=== PATIENT | male | born 1995 | race Caucasian/White ===

== ENCOUNTER 2022-02-05 03:09 | Inpatient (IN) ==
[2022-02-05] MEDS ORDERED: IOPAMIDOL 100 ML BOTTLE IV ONE (03:10)
[2022-02-05] MEDS ORDERED: SULFAMETHOXAZOLE/TRIMETHOPRIM 1 TABLET PO ONE (03:50)
[2022-02-05] MEDS ORDERED: CEPHALEXIN 250 MG CAPSULE PO ONE (03:50)
[2022-02-05] MEDS ORDERED: ACETAMINOPHEN 325 MG TABLET PO ONE (03:52)
--- NOTE | 2022-02-05 03:53 | Emergency Department Note ---
HPI General Chief complaint: Chest Pain Stated complaint: chest/arm pain Time Seen by Provider: 02/05/22 03:19 Source: patient Mode of arrival: ambulatory History of Present Illness HPI Narrative: 26-year-old male presents with intermittent chest discomfort nonproductive cough for the last week. States exertional shortness of breath. Friend is at bedside. He does use IV heroin as well as smokes methamphetamine. He is trying to detox himself at home and using smaller less frequent doses of IV heroin. Did notice redness swelling to his left AC approximately 5 days ago. No drainage. No numbness tingling or focal weakness. No fevers or chills. He feels he may have an abscess. No associated nausea vomiting abdominal pain diarrhea. Though states decreased p.o. intake. No recent travels or sick contacts. He is not Covid vaccinated Related Data Allergies Allergy/AdvReac Type Severity Reaction Status Date / Time ibuprofen Allergy Vomiting Verified 02/05/22 03:16 morphine Allergy Hives Verified 02/05/22 03:16 naproxen Allergy Vomiting Verified 02/05/22 03:16 tramadol Allergy Vomiting Verified 02/05/22 03:16 Review of Systems ROS ROS Narrative: 10 point review of system is otherwise negative except as mentioned in HPI. PFSH Narrative Patient History Narrative: Narrative: Medical/Surgical/Family History All Active Problems (Updated 02/05/22 @ 04:16 by Beryl Maciel MD) Contusion (Acute) Fracture of hand (Acute) Medical History (Updated 02/05/22 @ 04:16 by Beryl Maciel MD) Contusion Fracture of hand Social History Smoking Status: Current every day smoker Exam Narrative Narrative: (Please note that portions of this note may have been completed with a voice recognition program. Efforts were made to edit the dictations but occasionally words are mis-transcribed) CONSTITUTIONAL: Well-nourished well-hydrated adult male weight is 83 kg Resting comfortably. Not in acute distress. Non toxic. Awake alert and oriented x3. Cooperative, follows commands. HEAD: Normocephalic. Atraumatic. EYES: EOMI ENT: No drooling stridor NECK: Supple. Full range of motion. Trachea midline CARDIOVASCULAR: Adequate peripheral perfusion. S1-S2. Regular rate and rhythm 96 beats on the monitor on my exam No murmurs rubs gallops. No JVD. No lower extremity edema. +2 radial pulses bilaterally. PULMONARY: Nonlabored. Breathing 16 breaths a minute. Speaking full sentences. Clear to auscultation bilaterally. No rhonchi wheeze or crackles. ABDOMINAL: Soft. Nondistended. Nontender. EXTREMITIES: No gross deformities. Moves all 4 extremities with good strength and tone. SKIN: Warm and dry. No petechiae. Wounds to his upper extremities bilaterally consistent with excoriations as well as track mata noted. Left AC 3 x 2 cm fluctuant tender erythematous warm area. Consistent with an abscess. Bedside ultrasound by EDMD confirms abscess cavity approximately 1 x 2 cm just under the epidermis. He does still have full range of motion at the elbow wrist with good handgrips bilaterally. NEUROLOGY: Sensation is intact. No gross focal deficits. GCS of 15 Course Vital Signs Vital signs: Vital Signs Temperature 37.3 C H 02/05/22 03:09 Pulse Rate 103 H 02/05/22 03:09 Respiratory Rate 32 H 02/05/22 03:09 Blood Pressure 107/68 02/05/22 03:09 Pulse Oximetry (%) 100 02/05/22 03:09 Temperature 37.8 C H 02/05/22 05:24 Pulse Rate 92 H 02/05/22 05:25 Respiratory Rate 24 H 02/05/22 05:25 Blood Pressure 120/80 02/05/22 05:25 Pulse Oximetry (%) 99 02/05/22 05:25 MDM MDM Narrative Medical decision making narrative: ddx arrhythmia pleurisy costochondritis bronchitis pneumonia viral Covid aspir ation pulmonary embolus pneumothorax pericarditis sepsis bacteremia etc. Low suspicion for acute cardiothoracic process at this time including pulmonary embolus endocarditis. Declined covid testing. 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 supportive care. does not meet criteria for therapeutics. Lungs are clear with a pulse ox of 100% on room air. Twelve-lead EKG was obtained and does show a sinus tachycardia at 101 bpm[address] Normal axis. No ST elevations or depressions. No T wave abnormalities. No ectopy. Normal intervals. Bedside I&D was performed by ED[facility]. Informed consent was obtained from patient. Risks versus benefits were explained at length. He is agreeable. I&D of left AC abscess measuring 2 x 3 cm. Sterile conditions. Cleansed with Betadine. Numbed with 1% lidocaine 3 cc total over the fluctuance. Using an 11 blade scalpel a 1 cm incision was made. Immediately purulent drainage drained approximately 6 cc. Using curved hemostats septi were broken. Additional 2 cc drained. And then subsequently blood. Abscess cavity was subsequently irrigated with sterile water. Again septi were broken with curved hemostats. No additional purulent drainage. Mild bleeding. Packed. Dressed. Patient did tolerate well. Given a dose of Keflex Bactrim. Tylenol for pain control. Given wound care instructions. And close up with primary care doctor on Tuesday for wound check as well as packing removal and likely repacking. Strongly encouraged to stop use of IV heroin as well as smoking methamphetamine. Fluid hydrate. Return back to the ER if symptoms worsen. Agreeable does verbalize understanding and has no further questions. Chest x-ray was obtained at bedside. And un fortunately per ED MD interpretation does show a left upper lobe infiltrate. Is mildly tachycardic in the 110s tachypneic at 20s. Labs IV fluids cultures have been ordered. CT angio of the chest has been ordered. Unable to obtain a peripheral IV. And so ultrasound guidance was used by EDID to place a 20-gauge right AC IV. Area was initially prepped with Betadine. Using ultrasound guidance long 20-gauge cath was visualized puncturing vein with good flash. I did subsequently obtain 20 cc of blood to be sent for routine analysis as well as 1 blood culture. IV was secured. Fluid hydration. IV Rocephin was ordered as well as doxycycline to cover for community-acquired pneumonia. Concern for MRSA pneumonia and so vancomycin was ordered. Did unfortunately spike a fever was given IV Toradol which she tolerated. States that he has side effects of nausea vomiting from the coating of p.o. Motrin. CT angio of the chest per radiologist does show a 8 cm consolidated infiltrate in the left paramediastinal upper lobe with 2 cavities one measuring 3.2 cm and the other measuring 1.4 cm that have developed within this mass. Likely representing a consolidated pneumonia complicated by abscess formation. Patient's fever did break. Slight improvement in heart rate in the 90s. Respirations are down to 24 breaths/min. Pulse ox remains normal at 99% on room air. He was updated on results clinical impressions treatment plan. I do recommend admission. He is agreeable questions have been answered at length. Hospitalist will be paged in the morning Final impressions 1. Large left upper lobe pneumonia complicated by abscess formation 2. Sepsis 3. left AC abscess sp I&D/packing 4. IV heroin abuse 5. Methamphetamine abuse Dipso: admit tele Condition: fair Lab Data Result diagrams: 02/05/22 04:30 02/05/22 04:30 Labs: Lab Results 02/05/22 02/05/22 02/05/22 Range/Units 04:30 04:30 04:30 WBC 19.3 H (4.5-11.0) K/mcL RBC 4.40 L (4.63-6.08) M/mcL Hgb 12.3 L (13.7-17.5) g/dL Hct 38.4 L (40.1-51.0) % MCV 87.3 (80.0-100.0) fL MCH 28.0 (26.0-34.0) pg MCHC 32.0 (31.0-36.0) g/dL RDW 13.9 (11.5-14.5) % Plt Count 481 H (140-440) K/mcL MPV 9.8 (7.4-10.4) fL Neut % (Auto) 71.8 (38.0-78.0) % Lymph % (Auto) 17.9 (15.5-49.0) % Spencer % (Auto) 8.7 (1.0-12.0) % Eos % (Auto) 1.0 (0.0-7.0) % Baso % (Auto) 0.6 (0.0-2.0) % Lymph # (Auto) 3.45 (1.50-4.80) K/mcL Spencer # (Auto) 1.67 H (0.10-0.90) K/mcL Eos # (Auto) 0.20 (0.00-0.70) K/mcL Baso # (Auto) 0.12 (0.00-0.30) K/mcL Absolute Neutrophils 13.81 H (1.80-8.00) K/mcL VBG Lactic Acid (0.5-2.0) mmol/L Sodium 134 (133-145) mmol/L Potassium 3.5 (3.3-5.1) mmol/L Chloride 97 (96-108) mmol/L Carbon Dioxide 24 (22-30) mmol/L Anion Gap 13.0 (8.0-16.0) BUN 4 L (6-20) mg/dL Creatinine 0.7 (0.7-1.2) mg/dL POC Creatinine 0.6 (0.6-1.2) mg/dL GFR Calculation 128 Glucose 91 (70-105) mg/dL Calcium 9.5 (8.6-10.4) mg/dL Total Bilirubin 0.3 (0.1-1.0) mg/dL AST 29 (<40) U/L ALT 48 H (<40) U/L Alkaline Phosphatase 183 H (39-117) U/L Troponin T < 0.01 (<0.03) ng/mL NT-Pro-B Natriuret Pep 181.5 H (<125.0) pg/mL Total Protein 9.1 H (5.9-8.4) gm/dL Albumin 3.7 (3.2-5.2) gm/dL Globulin 5.4 H (2.2-3.7) gm/dL Albumin/Globulin Ratio 0.7 L (1.0-2.3) 02/05/22 Range/Units 04:30 WBC (4.5-11.0) K/mcL RBC (4.63-6.08) M/mcL Hgb (13.7-17.5) g/dL Hct (40.1-51.0) % MCV (80.0-100.0) fL MCH (26.0-34.0) pg MCHC (31.0-36.0) g/dL RDW (11.5-14.5) % Plt Count (140-440) K/mcL MPV (7.4-10.4) fL Neut % (Auto) (38.0-78.0) % Lymph % (Auto) (15.5-49.0) % Spencer % (Auto) (1.0-12.0) % Eos % (Auto) (0.0-7.0) % Baso % (Auto) (0.0-2.0) % Lymph # (Auto) (1.50-4.80) K/mcL Spencer # (Auto) (0.10-0.90) K/mcL Eos # (Auto) (0.00-0.70) K/mcL Baso # (Auto) (0.00-0.30) K/mcL Absolute Neutrophils (1.80-8.00) K/mcL VBG Lactic Acid 1.3 (0.5-2.0) mmol/L Sodium (133-145) mmol/L Potassium (3.3-5.1) mmol/L Chloride (96-108) mmol/L Carbon Dioxide (22-30) mmol/L Anion Gap (8.0-16.0) BUN (6-20) mg/dL Creatinine (0.7-1.2) mg/dL POC Creatinine (0.6-1.2) mg/dL GFR Calculation Glucose (70-105) mg/dL Calcium (8.6-10.4) mg/dL Total Bilirubin (0.1-1.0) mg/dL AST (<40) U/L ALT (<40) U/L Alkaline Phosphatase (39-117) U/L Troponin T (<0.03) ng/mL NT-Pro-B Natriuret Pep (<125.0) pg/mL Total Protein (5.9-8.4) gm/dL Albumin (3.2-5.2) gm/dL Globulin (2.2-3.7) gm/dL Albumin/Globulin Ratio (1.0-2.3) Discharge Plan Patient/Caregiver Discharge Instructions Pt seen by CHEMICAL RECOVERY OPERATOR/PA only: No Patient Disposition: Xfer As Inpt ([facility]) Condition: Fair Follow up with: Garfield Grant MD [Primary Care Provider] -
[2022-02-05] MEDS ORDERED: 0.9 % SODIUM CHLORIDE 1,000 ML IV ONE ×2 (04:13)
[2022-02-05] MEDS ORDERED: cefTRIAXone 1 GM VIAL IV ONE (04:31)
[2022-02-05 04:40] LABS: POC Creatinine 0.6 mg/dL (0.6-1.2)
[2022-02-05] MEDS ORDERED: KETOROLAC 30 MG/ML VIAL IV ONE (04:40)
--- NOTE | 2022-02-05 04:42 | XRay Report ---
CLINICAL INFORMATION: Cough history of smoking COMPARISON: None. TECHNIQUE: PA and Lateral views FINDINGS: The heart size, mediastinum and pulmonary vessels are unremarkable. A moderate (9 cm) infiltrate or infiltrate-like mass has developed in the paramediastinal left upper lobe. The remaining lungs are clear. There are no effusions There are no effusions. The bones and soft tissues are within normal limits. IMPRESSION: Moderate infiltrate or, less likely, infiltrate-like mass in the paramediastinal left upper lobe. Chest CT will be performed Interpreted and Authenticated by: Leonel Sanchez 02/05/22
[2022-02-05] MEDS ORDERED: VANCOMYCIN 2,000 MG in 0.9 % SODIUM CHLORIDE 500 ML IV ONE (04:43)
[2022-02-05] MEDS ORDERED: DOXYCYCLINE 100 MG in DEXTROSE 5% IN WATER 100 ML IV ONE (04:43)
[2022-02-05 05:11] LABS: Basophils # (Auto) 0.12 K/mcL (0.00-0.30); Basophils % (Auto) 0.6 % (0.0-2.0); Hematocrit 38.4 % (40.1-51.0); Hemoglobin 12.3 g/dL (13.7-17.5); Lymphocytes # (Auto) 3.45 K/mcL (1.50-4.80); Lymphocytes % (Auto) 17.9 % (15.5-49.0); Mean Cell Volume 87.3 fL (80.0-100.0); Mean Platelet Volume 9.8 fL (7.4-10.4); Monocytes # (Auto) 1.67 K/mcL (0.10-0.90); Monocytes % (Auto) 8.7 % (1.0-12.0); Neutrophils % (Auto) 71.8 % (38.0-78.0); Platelet Count 481 K/mcL (140-440); Red Cell Distribution Width 13.9 % (11.5-14.5); WBC 19.3 K/mcL (4.5-11.0)
--- NOTE | 2022-02-05 05:29 | Cat Scan Report ---
CLINICAL INFORMATION: Left-sided chest pain. Moderate-sized infiltrate or infiltrate-like mass is seen in the left upper lobe on plain film COMPARISON: None. TECHNIQUE: 80 ml of Isovue-370 were injected intravenously. Using SmartPrep to maximize pulmonary artery opacification, .625mm helical slices were obtained from the lung apices through the lung bases. Following reconstruction, 2.5 mm sagittal, coronal, and axial reformations were processed. The exam was reviewed at mediastinal, lung, and bone windows. The exam was performed using radiation dose optimization techniques including, but not limited to, automated exposure control, adjustment of the mA and/or kV according to patient size and use of iterative reconstruction technique. FINDINGS: Pulmonary parenchymal windows show a large (8 cm x 4 cm) consolidated infiltrate in the paramediastinal left upper lobe. Within the infiltrate, a 3.2 cm cavitary region with air-fluid level is seen anteriorly and a smaller (14 mm) cavitary lesion seen posteriorly. Suspect pneumonia which has undergone central necrosis and abscess formation. The remaining lungs are clear. There are no effusions. Mediastinal windows show the heart is normal in size and configuration with widely patent coronary arteries. The pulmonary arteries are normal diameter and well opacified-no evidence of embolus. The thoracic aorta is normal diameter. A 22 mm enlarged lymph node in the thoracic aortic arch region is likely reactive related to the adjacent infection. Mild adenopathy in the left suprahilar region is contiguous the infiltrate. Esophagus is grossly normal. Thyroid is unremarkable. Bones and soft tissues of the chest wall show no abnormality. Images through the superior abdomen show mild hepatic enlargement. The visualized spleen, adrenal glands, kidneys and pancreas are normal. IMPRESSION: 1. Large (8 cm) consolidated infiltrate in the paramediastinal left upper lobe. Two cavities, 3.2 cm and 1.4 cm, respectively have developed within the mass. This almost certainly represents a consolidated pneumonia complicated by abscess formation. Malignancy, while possible, is considered highly unlikely. Suggest plain film follow-up in four weeks to ensure resolution with antibiotic treatment. 2. Mild hepatomegaly. Please correlate with LFTs Interpreted and Authenticated by: Leonel Sanchez 02/05/22
[2022-02-05] MEDS ORDERED: 0.9 % SODIUM CHLORIDE 500 ML IV ONE (05:32)
[2022-02-05 05:35] LABS: proBNP 181.5 pg/mL (<125.0)
[2022-02-05 05:37] LABS: ALT/SGPT 48 U/L (<40); AST/SGOT 29 U/L (<40); Albumin 3.7 gm/dL (3.2-5.2); Albumin/Globulin Ratio 0.7 (1.0-2.3); Alkaline Phosphatase 183 U/L (39-117); Bilirubin,Total 0.3 mg/dL (0.1-1.0); Blood Urea Nitrogen 4 mg/dL (6-20); Calcium 9.5 mg/dL (8.6-10.4); Carbon Dioxide 24 mmol/L (22-30); Chloride 97 mmol/L (96-108); Globulin 5.4 gm/dL (2.2-3.7); Glomerular Filtration Rate 128; Glucose 91 mg/dL (70-105)
[2022-02-05] MEDS ORDERED: metroNIDAZOLE 500 MG in PREMIX 1 BAG IV ONE (06:51)
--- NOTE | 2022-02-05 06:59 | Internal Med History&Physical ---
HPI History of Present Illness Patient information: Note initiated : 02/05/22 at 6:56 am Service Date, if different from initiated Date: [] Patient: Steven Dodson 26 y/o M admitted on for chest/arm pain. Chief Complaint: [] History of present illness: Mr. 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 The patient was found to have an abscess related to recent IV drug use and underwent I&D in the emergency department. A large cons olidated infiltrate in the paramediastinal left upper lobe with 2 cavities within the mass likely representing a consolidated pneumonia complicated by abscess formation. Patient was started on broad-spectrum antibiotics. Hospital medicine was consulted for admission. Review of systems Constitutional: Positive for fatigue Eyes: no vision changes or pain Cardiovascular: Positive for pleuritic chest pain, no palpitations Respiratory: no cough or dyspnea Gastrointestinal: no abdominal pain, no nausea, vomiting, or diarrhea Genitourinary: no dysuria or difficulty voiding Musculoskeletal: Positive for left upper extremity pain in the antecubital fossa Integumentary: Positive for redness and edema in the antecubital fossa Neurological: no focal weakness or numbness Psychiatric: no anxiety or depression Physical exam Head: Atraumatic, normal inspection. Eyes: normal appearance, no scleral icterus. Neck: full ROM Respiratory: no respiratory distress. Cardiovascular: normal rate and rhythm, S1, S2. GI/Abdominal: soft, nontender, no guarding. Extremities: Status post I&D of abscess in left antecubital fossa Neurological: CN II-XII intact, intact motor, intact sensation. Psychiatric: normal mood. Skin: Multiple skin lesions throughout torso, abdomen upper legs in various stages of healing. PFSH PFSH All Active Problems (Updated 02/05/22 @ 04:16 by Beryl Maciel MD) Contusion (Acute) Fracture of hand (Acute) Medical History (Updated 02/05/22 @ 04:16 by Beryl Maciel MD) Contusion Fracture of hand MEDS/ALLERGIES Home Medications and Allergies Allergies Allergy/AdvReac Type Severity Reaction Status Date / Time morphine Allergy Mild Hives Verified 02/05/22 09:31 ibuprofen AdvReac Mild Vomiting Verified 02/05/22 09:31 naproxen AdvReac Mild Vomiting Verified 02/05/22 09:31 tramadol AdvReac Mild Vomiting Verified 02/05/22 09:31 EXAM Constitutional Vitals: Temp Pulse Resp BP Pulse Ox 98.3 F 91 H 21 116/85 95 02/05/22 06:18 02/05/22 06:18 02/05/22 06:18 02/05/22 06:01 02/05/22 06:18 DATA Data Completed and Pending Labs: Labs from last 24 hours 02/05/22 02/05/22 02/05/22 04:30 04:30 04:30 WBC RBC Hgb Hct MCV MCH MCHC RDW Plt Count MPV Neut % (Auto) Lymph % (Auto) Beaver % (Auto) Eos % (Auto) Baso % (Auto) Lymph # (Auto) Beaver # (Auto) Eos # (Auto) Baso # (Auto) Absolute Neutrophils VBG Lactic Acid 1.3 Sodium Potassium Chloride Carbon Dioxide Anion Gap BUN Creatinine POC Creatinine GFR Calculation Glucose Calcium Total Bilirubin AST ALT Alkaline Phosphatase Troponin T < 0.01 NT-Pro-B Natriuret Pep Total Protein Albumin Globulin Albumin/Globulin Ratio Procalcitonin 0.19 H 02/05/22 02/05/22 04:30 04:30 WBC 19.3 H RBC 4.40 L Hgb 12.3 L Hct 38.4 L MCV 87.3 MCH 28.0 MCHC 32.0 RDW 13.9 Plt Count 481 H MPV 9.8 Neut % (Auto) 71.8 Lymph % (Auto) 17.9 Beaver % (Auto) 8.7 Eos % (Auto) 1.0 Baso % (Auto) 0.6 Lymph # (Auto) 3.45 Beaver # (Auto) 1.67 H Eos # (Auto) 0.20 Baso # (Auto) 0.12 Absolute Neutrophils 13.81 H VBG Lactic Acid Sodium 134 Potassium 3.5 Chloride 97 Carbon Dioxide 24 Anion Gap 13.0 BUN 4 L Creatinine 0.7 POC Creatinine 0.6 GFR Calculation 128 Glucose 91 Calcium 9.5 Total Bilirubin 0.3 AST 29 ALT 48 H Alkaline Phosphatase 183 H Troponin T NT-Pro-B Natriuret Pep 181.5 H Total Protein 9.1 H Albumin 3.7 Globulin 5.4 H Albumin/Globulin Ratio 0.7 L Procalcitonin A/P Narrative A/P Narrative: Assessment: 26 year old male with a history of IVDU, pituatary mass presents for a hand infection and pneumonia complicated by abscess formation. The patients presentation is concerning for bacteremia and septic pulmonary emboli related to IVDU. #Sepsis likely related to IVDU #Concern for bacteremia/endocarditis #Left upper lobe pneumonia with cavitations likely abscess -concern for septic pulmonary emboli #Left antecubital fossa abscess secondary to IVDU -s/p I&D in ED #Pleuritic chest pain secondary to pneumonia #Substance use disorder -heroin and methamphetamine #History of pituitary prolactinoma s/p resection x2 Plan -Vancomycin, Ceftriaxone, Metronidazole for now. -Follow blood cultures. -MRSA nasal PCR. -US of left antecubital fossa to evaluate for drainable fluid collection. -Hep B, C, HIV and Syphilis screening for DAVID. -Urine drug screen. -Monitor for opioid withdrawal w/ COWS. -Initiate Buprenorphine if/when the patient develops moderate opioid withdrawal. -Consider TTE. 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 -Regular diet. -DVT ppx: Ambulatory -Code status: Full -Disposition: Probably home, possibly on IV abx depending on workup. Might need to consider PINA if suspicion high for endocarditis and TTE negative. Time Spent With Patient Time: Total time spent is greater than 50% in coordination of care (as documented) at patient's floor/unit and/or counseling patient:
[2022-02-05] MEDS ORDERED: metroNIDAZOLE 500 MG/100 ML BAG IV ONE (07:07)
[2022-02-05 07:38] LABS: HIV1/2 AG/AB 4TH Generation Non-Reactive (Non-Reactive)
[2022-02-05 07:53] LABS: Hepatitis B Surface Antigen Negative (Negative); Hepatitis C Virus Antibody Non-Reactive (Non-Reactive)
[2022-02-05 07:54] LABS: Amphetamine Screen,Urine Suspect positive; Barbiturate Screen,Urine None detected; Benzodiazepines Screen,Urine None detected; Cannabinoid Screen,Urine None detected; Cocaine Screen,Urine None detected; Opiate Screen,Urine Suspect Positive; Oxycodone, Urine Screen None detected; Phencyclidine Screen,Urine None detected
[2022-02-05] MEDS ORDERED: ACETAMINOPHEN 325 MG TABLET PO PRN (09:29)
[2022-02-05] MEDS ORDERED: VANCOMYCIN PER PHARMACY IV SCH (09:29)
[2022-02-05] MEDS ORDERED: IBUPROFEN 600 MG TABLET PO PRN (09:29)
[2022-02-05] MEDS ORDERED: ONDANSETRON 4 MG/2 ML VIAL IV PRN (09:29)
[2022-02-05] MEDS ORDERED: SENNOSIDES 1 TABLET PO PRN (09:29)
[2022-02-05] MEDS ORDERED: BUPRENORPHINE/NALOXONE 4MG/1MG ORAL FILM SL PRN ×2 (10:37)
--- NOTE | 2022-02-05 10:37 | Ultrasound Report ---
CLINICAL INFORMATION: Fluid collection left antecubital fossa COMPARISON: None. FINDINGS: A 2 cm fluid collection is seen in the subcutaneous region of the antecubital fossa presumably representing an abscess. IMPRESSION: 2 cm abscess in the antecubital fossa Interpreted and Authenticated by: Leonel Sanchez 02/05/22
--- NOTE | 2022-02-05 14:40 | General Surgery Consult Note ---
HPI Data of Consult Patient: new to practice Consult date: 02/05/22 Requesting physician: Jason Duval Primary Care Provider: Garfield rGant Consult Narrative Patient Information: Note initiated : 02/05/22 at 2:27 pm Service Date, if different from initiated Date: [] Patient: Steven Dodson a 26 y/o M admitted on 02/05/22 for chest/arm pain. Chief Complaint: [IVDA Associated Left Antecubital Abscess] Steven is seen in consultation after admission from the ED with evidence of infectious complications related to apparent IVDA use. He was seen in the ED last night and underwent I&D of a Left Arm Abscess located in the Antecubital Fossa. Additionally he's been found to have evidence of pneumonia in a pattern consistent with possible septic emboli. We were asked to see him to comment on any possible need for additional work up and/or debridement. He is minimally conversant for this consultation. cc:: CC: Jason Duval MD Review of Systems ROS unobtainable: other (non participatory ? drug influence ) PFSH PFSH All Active Problems (Updated 02/05/22 @ 14:37 by Cassius Bourgeois MD) Abscess of arm, left (Acute) Contusion (Acute) Fracture of hand (Acute) Medical History (Updated 02/05/22 @ 14:37 by Cassius Bourgeois MD) Contusion Fracture of hand MEDS/ALLERGIES Home Medications and Allergies Allergies Allergy/AdvReac Type Severity Reaction Status Date / Time morphine Allergy Mild Hives Verified 02/05/22 09:31 ibuprofen AdvReac Mild Vomiting Verified 02/05/22 09:31 naproxen AdvReac Mild Vomiting Verified 02/05/22 09:31 tramadol AdvReac Mild Vomiting Verified 02/05/22 09:31 Physical Examination Vital Signs Vital signs: Temp Pulse Resp BP Pulse Ox 97.8 F 96 H 12 126/101 95 02/05/22 12:00 02/05/22 12:00 02/05/22 12:00 02/05/22 12:00 02/05/22 12:00 General physical appearance General physical exam: no distress and other (minimally conversant ) Head Head exam IM: Present atraumatic, normal inspection and normocephalic Cardiovascular Cardiovascular exam IM: Present RRR Respiratory Respiratory exam: normal respiratory effort Integumentary Integumentary: Present other (directed examination to the Left Antecubital Fossa demonstrates a focal area of swelling with packing in place, minimal tenderness and no evidence of ascending lymphangits, cellulitis or streaking infection ) Results Labs Result diagrams: 02/05/22 04:30 02/05/22 04:30 Labs: Abnormal lab results 02/05/22 02/05/22 02/05/22 Range/Units 04:30 04:30 04:30 WBC 19.3 H (4.5-11.0) K/mcL RBC 4.40 L (4.63-6.08) M/mcL Hgb 12.3 L (13.7-17.5) g/dL Hct 38.4 L (40.1-51.0) % Plt Count 481 H (140-440) K/mcL [place] # (Auto) 1.67 H (0.10-0.90) K/mcL Absolute Neutrophils 13.81 H (1.80-8.00) K/mcL BUN 4 L (6-20) mg/dL ALT 48 H (<40) U/L Alkaline Phosphatase 183 H (39-117) U/L NT-Pro-B Natriuret Pep 181.5 H (<125.0) pg/mL Total Protein 9.1 H (5.9-8.4) gm/dL Globulin 5.4 H (2.2-3.7) gm/dL Albumin/Globulin Ratio 0.7 L (1.0-2.3) Procalcitonin 0.19 H (<0.10) ng/mL Urine Opiates Screen Ur Amphetamines Screen 02/05/22 Range/Units 05:27 WBC (4.5-11.0) K/mcL RBC (4.63-6.08) M/mcL Hgb (13.7-17.5) g/dL Hct (40.1-51.0) % Plt Count (140-440) K/mcL [place] # (Auto) (0.10-0.90) K/mcL Absolute Neutrophils (1.80-8.00) K/mcL BUN (6-20) mg/dL ALT (<40) U/L Alkaline Phosphatase (39-117) U/L NT-Pro-B Natriuret Pep (<125.0) pg/mL Total Protein (5.9-8.4) gm/dL Globulin (2.2-3.7) gm/dL Albumin/Globulin Ratio (1.0-2.3) Procalcitonin (<0.10) ng/mL Urine Opiates Screen Suspect positive A Ur Amphetamines Screen Suspect positive A Diabetes panel 02/05/22 Range/Units 04:30 Sodium 134 (133-145) mmol/L Potassium 3.5 (3.3-5.1) mmol/L Chloride 97 (96-108) mmol/L Carbon Dioxide 24 (22-30) mmol/L BUN 4 L (6-20) mg/dL Creatinine 0.7 (0.7-1.2) mg/dL Glucose 91 (70-105) mg/dL Calcium 9.5 (8.6-10.4) mg/dL AST 29 (<40) U/L ALT 48 H (<40) U/L Alkaline Phosphatase 183 H (39-117) U/L Total Protein 9.1 H (5.9-8.4) gm/dL Albumin 3.7 (3.2-5.2) gm/dL Calcium panel 02/05/22 Range/Units 04:30 Calcium 9.5 (8.6-10.4) mg/dL Albumin 3.7 (3.2-5.2) gm/dL Pituitary panel 02/05/22 Range/Units 04:30 Sodium 134 (133-145) mmol/L Potassium 3.5 (3.3-5.1) mmol/L Chloride 97 (96-108) mmol/L Carbon Dioxide 24 (22-30) mmol/L BUN 4 L (6-20) mg/dL Creatinine 0.7 (0.7-1.2) mg/dL Glucose 91 (70-105) mg/dL Calcium 9.5 (8.6-10.4) mg/dL Adrenal panel 02/05/22 Range/Units 04:30 Sodium 134 (133-145) mmol/L Potassium 3.5 (3.3-5.1) mmol/L Chloride 97 (96-108) mmol/L Carbon Dioxide 24 (22-30) mmol/L BUN 4 L (6-20) mg/dL Creatinine 0.7 (0.7-1.2) mg/dL Glucose 91 (70-105) mg/dL Calcium 9.5 (8.6-10.4) mg/dL Total Bilirubin 0.3 (0.1-1.0) mg/dL AST 29 (<40) U/L ALT 48 H (<40) U/L Alkaline Phosphatase 183 H (39-117) U/L Total Protein 9.1 H (5.9-8.4) gm/dL Albumin 3.7 (3.2-5.2) gm/dL All other labs normal. A/P Assessment and plan (1) Abscess of arm, left: Assessment and plan: Left Arm Abscess post I&D US sound findings are reviewed The area seems adequately drained for now with broad spectrum ABs now on board. Although this might be a focus of more systemic infection, it seems possible there might be another source such as Infectious Endocarditis ? Need for ECHO Packing should be changed daily and its possible that he'll ultimately require a more formal I&D in the OR but I think its reasonable to see how this does with IV ABs over the next 24-48 hours and I don't see any definitive need for extremity CT or MRI at this time but that too could ultimately be necessary Status: Acute Time Spent With Patient Time: Total time spent is greater than 50% in coordination of care (as documented) at patient's floor/unit and/or counseling patient:
[2022-02-05] MEDS: metroNIDAZOLE 500 MG in PREMIX 1 BAG IV SCH ×2 (15:16→22:43)
[2022-02-05] MEDS: 0.9 % SODIUM CHLORIDE 10 ML SYRINGE IV SCH ×2 (15:18→21:07)
[2022-02-05] MEDS: VANCOMYCIN 1,500 MG in 0.9 % SODIUM CHLORIDE 500 ML IV SCH (21:07)
[2022-02-06] MEDS: metroNIDAZOLE 500 MG in PREMIX 1 BAG IV SCH ×3 (05:45→21:59)
[2022-02-06] MEDS: 0.9 % SODIUM CHLORIDE 10 ML SYRINGE IV SCH ×3 (05:46→21:59)
[2022-02-06] MEDS: cefTRIAXone 2 GM in DEXTROSE 5% IN WATER 50 ML IV SCH (08:35)
[2022-02-06] MEDS: VANCOMYCIN 1,500 MG in 0.9 % SODIUM CHLORIDE 500 ML IV SCH (10:50)
[2022-02-06] MEDS: DAPTOmycin 500 MG VIAL IV SCH (14:51)
--- NOTE | 2022-02-06 15:09 | Internal Med Progress Note ---
SUBJECTIVE Subjective Patient information: Note initiated : 02/06/22 at 3:09 pm Service Date, if different from initiated Date: [] Patient: Steven Dodson 26 y/o M admitted on 02/05/22 for chest/arm pain. Chief Complaint: [] Interval history: Mr. 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 The patient was found to have an abscess related to recent IV drug use and underwent I&D in the emergency department. A large consolidated infiltrate in the paramediastinal left upper lobe with 2 cavities within the mass likely representing a consolidated pneumonia complicated by abscess formation. Patient was started on broad-spectrum antibiotics. Hospital medicine was consulted for admission. 02/06 No major events overnight, the patient refused lab draws so unable to obtain vancomycin trough levels, discontinued vancomycin and started empiric daptomycin. General surgery consulted for a 2 cm fluid collection reported on the ultrasound of the patient's left antecubital fossa-recommended continuing antibiotics for now. Blood cultures showing no growth to date, unfortunately cultures of the abscess were not obtained during the I&D. Transthoracic echo ordered. Physical exam Head: Atraumatic, normal inspection. Eyes: normal appearance, no scleral icterus. Neck: full ROM Respiratory: no respiratory distress. Cardiovascular: normal rate and rhythm, S1, S2. GI/Abdominal: soft, nontender, no guarding. Extremities: Status post I&D of abscess in left antecubital fossa Neurological: CN II-XII intact, intact motor, intact sensation. Psychiatric: normal mood. Skin: Multiple skin lesions throughout torso, abdomen upper legs in various stages of healing. Constitutional Vitals: Vital Signs Temp Pulse Resp BP Pulse Ox 98.4 F 128 H 20 119/80 96 02/05/22 23:16 02/05/22 23:16 02/05/22 23:16 02/05/22 23:16 02/05/22 23:16 Period Temp Pulse Resp BP Sys/Mckinney Pulse Ox Last 24 Hr 98.2 F-99.3 F 81-128 20-22 109-119/67-80 96-100 Intake and Output 02/06/22 02/06/22 02/06/22 05:59 13:59 21:59 Intake Total 1400 268 100 Output Total 700 Balance 700 268 100 Weight 89.358 kg Patient Weight 02/07/22 06:59 Weight 89.358 kg Intake & Output: Intake & Output 02/06/22 02/06/22 02/06/22 05:59 13:59 21:59 Intake Total 1400 268 100 Output Total 700 Balance 700 268 100 Weight 89.358 kg Intake: IV 600 150 100 Vancomycin 1,500 mg In Sodium 500 Chloride 0.9% 500 ml @ 333.3 mls/hr IV Q12H [facility] Rx#: [id number] Rocephin 2 gm In Dextrose 5% in 50 Water 50 ml @ 100 mls/hr IV Q24H [facility] Rx#:[id number] Flagyl 500 mg In Premix 1 Bag @ 100 100 100 100 mls/hr IV Q8H [facility] Rx#: [id number] Oral 800 118 Output: Void Amount 700 Other: Meal Lunch Percent of Meal Consumed 100% OBJ DATA Labs CBC & Chem 7: 02/05/22 04:30 02/05/22 04:30 Labs: Abnormal Lab Results 02/05/22 02/05/22 02/05/22 05:27 04:30 04:30 WBC RBC Hgb Hct Plt Count [place] # (Auto) Absolute Neutrophils BUN 4 L ALT 48 H Alkaline Phosphatase 183 H NT-Pro-B Natriuret Pep 181.5 H Total Protein 9.1 H Globulin 5.4 H Albumin/Globulin Ratio 0.7 L Procalcitonin 0.19 H Urine Opiates Screen Suspect positive A Ur Amphetamines Screen Suspect positive A 02/05/22 04:30 WBC 19.3 H RBC 4.40 L Hgb 12.3 L Hct 38.4 L Plt Count 481 H [place] # (Auto) 1.67 H Absolute Neutrophils 13.81 H BUN ALT Alkaline Phosphatase NT-Pro-B Natriuret Pep Total Protein Globulin Albumin/Globulin Ratio Procalcitonin Urine Opiates Screen Ur Amphetamines Screen Meds: Medications Acetaminophen (Acetaminophen 325 Mg Tablet) 650 mg PO Q6HP PRN; Protocol PRN Reason: Per Pain Protocol/Fever > 101 Daptomycin (Daptomycin 500 Mg Vial) 750 mg IV DAILY [facility]; Protocol Last Admin: 02/06/22 14:51 Dose: 750 mg Documented by: Ceftriaxone Sodium 2 gm/ (Dextrose) 50 mls @ 100 mls/hr IV Q24H [facility]; Protocol Last Infusion: 02/06/22 10:41 Dose: Infused Documented by: Metronidazole 500 mg/ Premix 100 mls @ 100 mls/hr IV Q8H [facility]; Protocol Last Infusion: 02/06/22 14:50 Dose: Infused Documented by: Ibuprofen (Ibuprofen 600 Mg Tablet) 600 mg PO QIDP PRN; Protocol PRN Reason: Per Pain Protocol/Fever > 101 Ondansetron HCl (Ondansetron 4 Mg/2 Ml Vial) 4 mg IV Q6HP PRN PRN Reason: Nausea And Vomiting Senna (Sennosides 1 Tablet) 2 tab PO HS PRN PRN Reason: constipation Sodium Chloride (0.9 % Sodium Chloride 10 Ml Syringe) 10 ml IV Q8 [facility] Last Admin: 02/06/22 13:41 Dose: 10 ml Documented by: A/P Narrative A/P Narrative: Assessment: 26 year old male with a history of IVDU, pituatary mass presents for a hand infection and pneumonia complicated by abscess formation. The patients presentation is concerning for bacteremia and septic pulmonary emboli related to IVDU. #Sepsis likely related to IVDU #Concern for bacteremia/endocarditis #Left upper lobe pneumonia with cavitations likely abscess -concern for septic pulmonary emboli #Left antecubital fossa abscess secondary to IVDU -s/p I&D in ED #Pleuritic chest pain secondary to pneumonia #Substance use disorder -heroin and methamphetamine #History of pituitary prolactinoma s/p resection x2 #High risk for leaving the hospital AMA Plan -Daptomycin, Ceftriaxone, Metronidazole for now. (patient refused blood draws so unable to dose IV Vancomycin) -Follow blood cultures. -MRSA nasal PCR. -Monitor for opioid withdrawal w/ COWS. -Initiate Buprenorphine if/when the patient develops moderate opioid withdrawal. -Transthoracic echo. -design coordinator. -Regular diet. -General surgey consulted for abscess. -DVT ppx: Ambulatory -Code status: Full -Disposition: Probably home, possibly on IV abx depending on workup. Might need to consider PINA if suspicion high for endocarditis and TTE negative. Time Spent With Patient Time: Total time spent is greater than 50% in coordination of care (as documented) at patient's floor/unit and/or counseling patient: QUALITY VTE Deep Vein Thrombosis/Pulmonary Embolism Present on Admission: No
[2022-02-07] MEDS: metroNIDAZOLE 500 MG in PREMIX 1 BAG IV SCH (05:56)
[2022-02-07] MEDS: 0.9 % SODIUM CHLORIDE 10 ML SYRINGE IV SCH (05:56)
[2022-02-07] MEDS: cefTRIAXone 2 GM in DEXTROSE 5% IN WATER 50 ML IV SCH (07:55)
--- NOTE | 2022-02-07 09:24 | EKG ---
[facility] Test Date: 2022-02-05 Pat Name: Steven Dodson Department: ED Room: Gender: Male [employer]: SE : 1995 Requested By: Beryl Maciel Order Number: [id number] Reading MD: Gautam Mancilla Measurements Intervals [place] Rate: 101 P: 27 MS: 141 QRS: 37 QRSD: 87 T: 33 QT: 333 QTc: 432 Interpretive Statements Sinus tachycardia Baseline wander in lead(s) II,aVF,V4 Electronically Signed On 02-07-2022 9:24:00 PDT by Gautam Mancilla /store/M0/[id number]
[2022-02-07] MEDS: DAPTOmycin 500 MG VIAL IV SCH (10:27)
--- NOTE | 2022-02-07 11:37 | Internal Med Progress Note ---
SUBJECTIVE Subjective Patient information: Note initiated : 02/07/22 at 11:29 am Service Date, if different from initiated Date: [] Patient: Steven Dodson 26 y/o M admitted on 02/05/22 for chest/arm pain. Chief Complaint: [] Interval history: Mr. 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 The patient was found to have an abscess related to recent IV drug use and underwent I&D in the emergency department. A large consolidated infiltrate in the paramediastinal left upper lobe with 2 cavities within the mass likely representing a consolidated pneumonia complicated by abscess formation. Patient was started on broad-spectrum antibiotics. Hospital medicine was consulted for admission. 02/06 No major events overnight, the patient refused lab draws so unable to obtain vancomycin trough levels, discontinued vancomycin and started empiric daptomycin. General surgery consulted for a 2 cm fluid collection reported on the ultrasound of the patient's left antecubital fossa-recommended continuing antibiotics for now. Blood cultures showing no growth to date, unfortunately cultures of the abscess were not obtained during the I&D. Transthoracic echo ordered. 02/07 Transthoracic echocardiogram was not completed as the patient was not cooperative. Continues to refuse labs, discussed MRSA nasal PCR as that would be helpful for managing the pulmonary infection. We will also get a repeat ultrasound of the left upper extremity to evaluate the abscess size after a couple days of IV antibiotics. No evidence of opioid withdrawal. Blood cultures showing no growth to date after 2 days. Physical exam Head: Atraumatic, normal inspection. Eyes: normal appearance, no scleral icterus. Neck: full ROM Respiratory: no respiratory distress. Cardiovascular: normal rate and rhythm, S1, S2. GI/Abdominal: soft, nontender, no guarding. Extremities: Status post I&D of abscess in left antecubital fossa Neurological: CN II-XII intact, intact motor, intact sensation. Psychiatric: normal mood. Skin: Multiple skin lesions throughout torso, abdomen upper legs in various stages of healing. Constitutional Vitals: Vital Signs Temp Pulse Resp BP Pulse Ox 96.8 F L 84 16 100/68 96 02/07/22 10:28 02/07/22 10:02/07/22 10:02/07/22 10:28 02/07/22 10:28 Period Temp Pulse Resp BP Sys/Mckinney Pulse Ox Last 24 Hr 96.8 F-100.3 F 84-123 16-18 92-116/66-68 96-98 Intake and Output 02/06/22 02/07/22 02/07/22 20:59 05:59 13:59 Intake Total 1190 Output Total 600 Balance 590 Weight Intake & Output: Intake & Output 02/06/22 02/07/22 02/07/22 20:59 05:59 13:59 Intake Total 1190 Output Total 600 Balance 590 Weight Intake: IV 150 Rocephin 2 gm In Dextrose 5% in 50 Water 50 ml @ 100 mls/hr IV Q24H [facility] Rx#:[id number] Flagyl 500 mg In Premix 1 Bag @ 100 100 mls/hr IV Q8H [facility] Rx#: [id number] Oral 1040 Output: Void Amount 600 Other: Meal Percent of Meal Consumed OBJ DATA Labs CBC & Chem 7: 02/05/22 04:30 02/05/22 04:30 Labs: Abnormal Lab Results 02/05/22 02/05/22 02/05/22 05:27 04:30 04:30 WBC RBC Hgb Hct Plt Count [place] # (Auto) Absolute Neutrophils BUN 4 L ALT 48 H Alkaline Phosphatase 183 H NT-Pro-B Natriuret Pep 181.5 H Total Protein 9.1 H Globulin 5.4 H Albumin/Globulin Ratio 0.7 L Procalcitonin 0.19 H Urine Opiates Screen Suspect positive A Ur Amphetamines Screen Suspect positive A 02/05/22 04:30 WBC 19.3 H RBC 4.40 L Hgb 12.3 L Hct 38.4 L Plt Count 481 H [place] # (Auto) 1.67 H Absolute Neutrophils 13.81 H BUN ALT Alkaline Phosphatase NT-Pro-B Natriuret Pep Total Protein Globulin Albumin/Globulin Ratio Procalcitonin Urine Opiates Screen Ur Amphetamines Screen Meds: Medications Acetaminophen (Acetaminophen 325 Mg Tablet) 650 mg PO Q6HP PRN; Protocol PRN Reason: Per Pain Protocol/Fever > 101 Last Admin: 02/06/22 20:05 Dose: 650 mg Documented by: Daptomycin (Daptomycin 500 Mg Vial) 750 mg IV DAILY [facility]; Protocol Last Admin: 02/07/22 10:27 Dose: 750 mg Documented by: Ceftriaxone Sodium 2 gm/ (Dextrose) 50 mls @ 100 mls/hr IV Q24H [facility]; Protocol Last Infusion: 02/07/22 08:55 Dose: Infused Documented by: Metronidazole 500 mg/ Premix 100 mls @ 100 mls/hr IV Q8H [facility]; Protocol Last Infusion: 02/07/22 06:56 Dose: Infused Documented by: Ibuprofen (Ibuprofen 600 Mg Tablet) 600 mg PO QIDP PRN; Protocol PRN Reason: Per Pain Protocol/Fever > 101 Last Admin: 02/07/22 06:03 Dose: 600 mg Documented by: Ondansetron HCl (Ondansetron 4 Mg/2 Ml Vial) 4 mg IV Q6HP PRN PRN Reason: Nausea And Vomiting Senna (Sennosides 1 Tablet) 2 tab PO HS PRN PRN Reason: constipation Sodium Chloride (0.9 % Sodium Chloride 10 Ml Syringe) 10 ml IV Q8 [facility] Last Admin: 02/07/22 05:56 Dose: 10 ml Documented by: A/P Narrative A/P Narrative: Assessment: 26 year old male with a history of IVDU, pituitary mass reportedly prolactinoma s/p 2 resections presented for a left antecubital fossa infection at a IV drug injection site and pneumonia complicated by abscess formation. The patients presentation was concerning for bacteremia and septic pulmonary emboli related to IVDU however blood cultures have not grown any organisms. #Resolved Sepsis secondary to IVDU associated infection #Left upper lobe pneumonia with cavitations likely abscess -concern for septic pulmonary emboli #Left antecubital fossa abscess secondary to IVDU -s/p I&D in ED, no cultures taken at that time #Concern for bacteremia/endocarditis -Blood cultures x2 showing no growth to date #Pleuritic chest pain secondary to pneumonia #Substance use disorder -heroin and methamphetamine #History of pituitary prolactinoma s/p resection x2 Plan -Daptomycin, Ceftriaxone, Metronidazole for now. (patient refused blood draws so unable to dose IV Vancomycin) -Follow blood cultures. -MRSA nasal PCR if the patient cooperates. -Repeat ultrasound of left antecubital fossa abscess. -Repeat chest x-ray today. -The patient did not cooperate with a transthoracic echo. -panel monitor. -Regular diet. -General surgery was consulted for abscess-recommended continuing IV antibiotic and monitoring. -DVT ppx: Ambulatory -Code status: Full -Disposition: Probably home, probably on oral antibiotics as long as blood cultures showed no growth. Referral for addiction medicine at discharge. Consider follow up pulmonary imaging to follow left upper lobe infection. Time Spent With Patient Time: Total time spent is greater than 50% in coordination of care (as documented) at patient's floor/unit and/or counseling patient: QUALITY VTE Deep Vein Thrombosis/Pulmonary Embolism Present on Admission: No
--- NOTE | 2022-02-07 13:15 | Internal Med Progress Note ---
SUBJECTIVE Subjective Patient information: Note initiated : 02/07/22 at 1:11 pm Service Date, if different from initiated Date: [] Patient: Steven Dodson 26 y/o M admitted on 02/05/22 for chest/arm pain. Chief Complaint: [] Interval history: Mr. 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 The patient was found to have an abscess related to recent IV drug use and underwent I&D in the emergency department. A large consolidated infiltrate in the paramediastinal left upper lobe with 2 cavities within the mass likely representing a consolidated pneumonia complicated by abscess formation. Patient was started on broad-spectrum antibiotics. Hospital medicine was consulted for admission. 02/06 No major events overnight, the patient refused lab draws so unable to obtain vancomycin trough levels, discontinued vancomycin and started empiric daptomycin. General surgery consulted for a 2 cm fluid collection reported on the ultrasound of the patient's left antecubital fossa-recommended continuing antibiotics for now. Blood cultures showing no growth to date, unfortunately cultures of the abscess were not obtained during the I&D. Transthoracic echo ordered. 02/07 Transthoracic echocardiogram was not completed as the patient was not cooperative. Continues to refuse labs, discussed MRSA nasal PCR as that would be helpful for managing the pulmonary infection. We will also get a repeat ultrasound of the left upper extremity to evaluate the abscess size after a couple days of IV antibiotics. No evidence of opioid withdrawal. Blood cultures showing no growth to date after 2 days. Constitutional Vitals: Vital Signs Temp Pulse Resp BP Pulse Ox 96.8 F L 84 16 100/68 96 02/07/22 10:28 02/07/22 10:28 02/07/22 10:28 02/07/22 10:28 02/07/22 10:28 Period Temp Pulse Resp BP Sys/Mckinney Pulse Ox Last 24 Hr 96.8 F-100.3 F 84-123 16-18 92-116/66-68 96-98 Intake and Output 02/06/22 02/07/22 02/07/22 20:59 05:59 13:59 Intake Total 1190 Output Total 600 Balance 590 Weight Intake & Output: Intake & Output 02/06/22 02/07/2222 20:59 05:59 13:59 Intake Total 1190 Output Total 600 Balance 590 Weight Intake: IV 150 Rocephin 2 gm In Dextrose 5% in 50 Water 50 ml @ 100 mls/hr IV Q24H [facility] Rx#:[id number] Flagyl 500 mg In Premix 1 Bag @ 100 100 mls/hr IV Q8H [facility] Rx#: [id number] Oral 1040 Output: Void Amount 600 Other: Meal Percent of Meal Consumed Exam: General: Alert, Awake, No acute Distress Eyes/N/T: EOMI, PERRL, MM Head/Neck: neck supple, normocephalic atraumatic CV: RRR, No murmurs, normal s1/s2 Pulm: Clear b/l, no wheezing/rhonchi/rales Abd: soft, nontender, +BS x4 Ext: no clubbing/cyanosis/edema. s/p I&D of abscess in left antecubital fossa Neuro: Alert, no focal deficits, moves all extremities, CN 2-12 grossly intact, symmetrical strength b/l upper/lower, sensations intact b/l upper/lower Skin: warm/dry OBJ DATA Labs CBC & Chem 7: 02/05/22 04:30 02/05/22 04:30 Labs: Abnormal Lab Results 02/05/22 02/05/22 02/05/22 05:27 04:30 04:30 WBC RBC Hgb Hct Plt Count Cache # (Auto) Absolute Neutrophils BUN 4 L ALT 48 H Alkaline Phosphatase 183 H NT-Pro-B Natriuret Pep 181.5 H Total Protein 9.1 H Globulin 5.4 H Albumin/Globulin Ratio 0.7 L Procalcitonin 0.19 H Urine Opiates Screen Suspect positive A Ur Amphetamines Screen Suspect positive A 02/05/22 04:30 WBC 19.3 H RBC 4.40 L Hgb 12.3 L Hct 38.4 L Plt Count 481 H Cache # (Auto) 1.67 H Absolute Neutrophils 13.81 H BUN ALT Alkaline Phosphatase NT-Pro-B Natriuret Pep Total Protein Globulin Albumin/Globulin Ratio Procalcitonin Urine Opiates Screen Ur Amphetamines Screen Meds: Medications Acetaminophen (Acetaminophen 325 Mg Tablet) 650 mg PO Q6HP PRN; Protocol PRN Reason: Per Pain Protocol/Fever > 101 Last Admin: 02/06/22 20:05 Dose: 650 mg Documented by: Daptomycin (Daptomycin 500 Mg Vial) 750 mg IV DAILY [facility]ILA; Protocol Last Admin: 02/07/22 10:27 Dose: 750 mg Documented by: Ceftriaxone Sodium 2 gm/ (Dextrose) 50 mls @ 100 mls/hr IV Q24H [facility]; Protocol Last Infusion: 02/07/22 08:55 Dose: Infused Documented by: Metronidazole 500 mg/ Premix 100 mls @ 100 mls/hr IV Q8H [facility]; Protocol Last Infusion: 02/07/22 06:56 Dose: Infused Documented by: Ibuprofen (Ibuprofen 600 Mg Tablet) 600 mg PO QIDP PRN; Protocol PRN Reason: Per Pain Protocol/Fever > 101 Last Admin: 02/07/22 06:03 Dose: 600 mg Documented by: Ondansetron HCl (Ondansetron 4 Mg/2 Ml Vial) 4 mg IV Q6HP PRN PRN Reason: Nausea And Vomiting Senna (Sennosides 1 Tablet) 2 tab PO HS PRN PRN Reason: constipation Sodium Chloride (0.9 % Sodium Chloride 10 Ml Syringe) 10 ml IV Q8 [facility]ILA Last Admin: 02/07/22 05:56 Dose: 10 ml Documented by: A/P Narrative A/P Narrative: A: #Sepsis(Resolved): Secondary to IVDU associated infection -afebrile today #KELSEY PNA w/cavitations likely abscess -concern for septic pulmonary emboli #Left antecubital fossa abscess: 2/2 IVDU -s/p I&D in ED, no cultures taken at that time #Concern for bacteremia/endocarditis -Blood cultures x2 showing no growth to date #Pleuritic chest pain: 2/2 pneumonia #Substance use disorder (Heroin/Methamphetamine) #h/o pituitary prolactinoma s/p resection x2 Plan: -pt refusing lab draws, mrsa screen -Zyvox/Merrem. (patient refused blood draws so unable to dose IV Vancomycin). Total Abx course 3-4 wks & f/u CT chest -Follow blood cultures. -Repeat ultrasound of left antecubital fossa abscess, Dr. Bourgeois to f/u -General surgery was consulted for abscess-recommended continuing IV antibiotic and monitoring. -Repeat chest x-ray today. -The patient did not cooperate with a transthoracic echo. -ppx: Ambulatory Disposition: Probably home, probably on oral antibiotics as long as blood cultures showed no growth. Referral for addiction medicine at discharge. Consider follow up pulmonary imaging to follow left upper lobe infection. Time Spent With Patient Time: Total time spent is greater than 50% in coordination of care (as documented) at patient's floor/unit and/or counseling patient: QUALITY VTE Deep Vein Thrombosis/Pulmonary Embolism Present on Admission: No
[2022-02-07] MEDS ORDERED: LINEZOLID 600 MG/300 ML BAG IV SCH (13:30)
--- NOTE | 2022-02-07 13:31 | XRay Report ---
CLINICAL INFORMATION: Follow up left apical infiltrate COMPARISON: None. TECHNIQUE: PA and Lateral views FINDINGS: The heart size, mediastinum and pulmonary vessels are unremarkable. The left apical infiltrate has decreased in size from 9 cm to 6 cm since the comparison x-ray chest two days prior. This would be compatible with a resolving pneumonia. The remaining lungs are clear. There are no effusions. Bones and soft tissues are normal. IMPRESSION: Marked improvement in left apical infiltrate since x-ray two days ago Interpreted and Authenticated by: Leonel Sanchez 02/07/22
[2022-02-07] MEDS ORDERED: MEROPENEM 1 GM in 0.9 % SODIUM CHLORIDE 50 ML IV SCH (14:00)
--- NOTE | 2022-02-07 15:16 | Discharge Summary ---
Discharge Provider Provider Patient information: Note initiated : 02/07/22 at 3:15 pm Service Date, if different from initiated Date: [] Patient: Steven Dodson 26 y/o M admitted on 02/05/22 for chest/arm pain. Chief Complaint: [] Date of admission: 02/05/22 09:22 Discharge date: 02/07/22 Primary care physician: Garfield Grant Consults: 02/05/22 Consult to Physician [CONS] Stat Comment: Consulting Provider: Jason Duavl Reason For Exam: Physician to Consult 02/05/22 12:09 Consult to Physician [CONS] Routine Comment: Consulting Provider: Cassius Bourgeois Reason For Exam: Physician to Consult Discharge Meds Discharge Medications Home Medications amoxicillin 875 mg-potassium clavulanate 125 mg tablet 1 tab PO Q12H #28 tab 02/07/22 [Rx Last Taken Unknown] COURSE Hospital Course Hospital course: Interval history: Mr. 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 The patient was found to have an abscess related to recent IV drug use and underwent I&D in the emergency department. A large consolidated infiltrate in the paramediastinal left upper lobe with 2 cavities within the mass likely representing a consolidated pneumonia complicated by abscess formation. Patient was started on broad-spectrum antibiotics. Hospital medicine was consulted for admission. 02/06 No major events overnight, the patient refused lab draws so unable to obtain vancomycin trough levels, discontinued vancomycin and started empiric daptomycin. General surgery consulted for a 2 cm fluid collection reported on t he ultrasound of the patient's left antecubital fossa-recommended continuing antibiotics for now. Blood cultures showing no growth to date, unfortunately cultures of the abscess were not obtained during the I&D. Transthoracic echo ordered. 02/07 Transthoracic echocardiogram was not completed as the patient was not cooperative. Continues to refuse labs, discussed MRSA nasal PCR as that would be helpful for managing the pulmonary infection. We will also get a repeat ultrasound of the left upper extremity to evaluate the abscess size after a couple days of IV antibiotics. No evidence of opioid withdrawal. Blood cultures showing no growth to date after 2 days. 02/08 Patient leaving AMA despite recommendation to stay. A: #Sepsis(Resolved): Secondary to IVDU associated infection #KELSEY PNA w/cavitations likely abscess #Left antecubital fossa abscess: 2/2 IVDU #Pleuritic chest pain: 2/2 pneumonia #Substance use disorder (Heroin/Methamphetamine) #h/o pituitary prolactinoma s/p resection x2 Plan: -pt refusing lab draws, mrsa screen, and now IV abx, pt leaving AMA -Did prescribe Augmentin so he has something at home to help treat the infection. Patient extremely high risk for readmission given noncompliance with medical treatment. Discharge diagnosis: Sepsis left upper lobe pneumonia with abscess antecubital fossa abscess IV Secondary discharge diagnosis: IV drug use with heroin and methamphetamine Time Spent with Patient Time attestation: Total time spent providing and/or coordinating discharge services: EXAM Constitutional Vitals: Temp Pulse Resp BP Pulse Ox 96.8 F L 84 16 100/68 96 02/07/22 10:28 02/07/22 10:28 02/07/22 10:28 02/07/22 10:28 02/07/22 10:28 Discharge Data Data Completed and Pending Labs on day of discharge: Preliminary micro results at discharge 02/05/22 05:10 Blood Culture - Preliminary Blood 02/05/22 04:30 Blood Culture - Preliminary Blood Discharge Plan Patient/Caregiver Discharge Instructions Prescriptions: New amoxicillin-pot clavulanate 875-125 mg tablet 1 tab PO Q12H Qty: 28 0RF Follow Up Plan Follow up with: Garfield Grant MD [Primary Care Provider] - Patient Disposition: Left Against Medical Advice Prognosis: Serious QUALITY VTE Deep Vein Thrombosis/Pulmonary Embolism Present on Admission: No
[2022-02-07] MEDS ORDERED: LINEZOLID 600 MG TABLET PO SCH (21:00)
[2022-02-15 04:57] LABS: Opiate Confirmation Positive
== END 2022-02-07 15:15 | disposition left against medical advice (07) | DRG 871 ==
LOC: ED 03:09 → MEDSUR 09:22
PROVIDERS: ADMIT Internal Medicine; ATTEND Internal Medicine

== ENCOUNTER 2022-12-14 12:22 | Observation (INO) ==
[2022-12-14] MEDS ORDERED: GADOBENATE DIMEGLUMINE 15 ML/VIAL IV ONE (12:23)
[2022-12-14] MEDS ORDERED: levETIRAcetam 1,000 MG in 0.9 % SODIUM CHLORIDE 100 ML IV ONE (13:00)
[2022-12-14] MEDS ORDERED: LORazepam 2 MG/ML VIAL IV ONE ×2 (15:08→19:07)
--- NOTE | 2022-12-14 15:58 | Magnetic Resonance Report ---
CLINICAL INFORMATION: Seizure disorder. History of transsphenoidal pituitary macroadenoma resection COMPARISON: Postoperative Brain MRI 01/13/2021 TECHNIQUE: Multiplanar MRI of the brain was obtained before and after administration of 14 mL of MultiHance intravenous contrast. FINDINGS: Surgical changes noted of pituitary fossa. No evidence of residual or recurrent pituitary adenoma or other lesion. Infundibulum is mildly thickened measuring approximately 3 mm and is deviated to the left. This is stable. Prior examination suggested possible small pituitary microadenoma which is not identified on today's examination. Remainder of brain is unremarkable. No hemorrhage or extra-axial fluid collections. No hydrocephalus. No ischemic changes. No evidence of mass. The posterior fossa is normal. IMPRESSION: No evidence of residual or recurrent pituitary lesion. Interpreted and Authenticated by: Steven Sampson M.D. 12/14/22
--- NOTE | 2022-12-14 16:16 | Emergency Department Note ---
Seizure HPI General Chief Complaint: Seizure Stated Complaint: seizure Time Seen by Provider: 12/14/22 12:59 Source: patient Mode of arrival: EMS Limitations: no limitations History of Present Illness HPI Narrative: 27-year-old incarcerated male with history of seizure disorder and medication noncompliance status post transsphenoidal resection of a pituitary adenoma presents to the ER for the second time in 24 hours for recurrent seizures. He was treated yesterday with IV Keppra load and initiated on 500 mg p.o. twice daily. Unfortunately, the detention did not administer his medications in a timely fashion and the patient had 3 recurrent witnessed seizures again this morning so he was brought back to the ER. Patient was unable to get an MRI of the brain yesterday as he was actively withdrawing from fentanyl and could not hold still. A CT scan of the brain showed stable postoperative changes and no new lesions or masses. Patient has a history of smoking fentanyl and methamphetamine. He also has a h istory of IV drug use. Last use was 5 days ago just prior to being incarcerated. Related Data Previous Rx's Medication Instructions Recorded amoxicillin 875 mg-potassium 1 tab PO Q12H #28 tabs 02/07/22 clavulanate 125 mg tablet levetiracetam 500 mg tablet 500 mg PO BID #30 tabs 12/13/22 (Keppra) Allergies Allergy/AdvReac Type Severity Reaction Status Date / Time morphine Allergy Mild Hives Verified 12/13/22 12:38 ibuprofen AdvReac Mild Vomiting Verified 12/13/22 12:38 naproxen AdvReac Mild Vomiting Verified 12/13/22 12:38 tramadol AdvReac Mild Vomiting Verified 12/13/22 12:38 Review of Systems ROS ROS Narrative: Narrative: All systems ED: reviewed and negative except as stated. [facility] Narrative Patient History Narrative: Narrative: Medical/Surgical/Family History All Active Problems (Updated 12/14/22 @ 18:07 by Emily Vera PA-C) Contusion of nose, initial encounter (Acute) Generalized seizure (Acute) Seizure (Acute) Abscess of arm, left (Acute) Contusion (Acute) Fracture of hand (Acute) Medical History Contusion Fracture of hand Social History Smoking Status: Current every day smoker Exam Narrative Narrative: General: AOx3, NAD, nontoxic appearing. Pleasant and conversant. HEENT: PERRL, EOMI, normocephalic. Moist mucous membranes. Normal facies and normal dentition. Respiratory: Lungs clear to auscultation bilaterally. No respiratory distress. Unlabored breathing. Heart: Regular rate and rhythm, no murmurs/clicks/rubs. Abdomen: Non-tender, Non distended Extremities: Warm and well perfused. No edema. DP 2+ bilaterally. No venous stasis. Neuro: No focal deficits. Cranial nerves II-XII grossly normal. Moving all fours 5+5 against resistance. Sensate to light touch throughout all extremities Skin: Warm dry, no rashes or lesions, no cyanosis. Psych: Normal mood and affect Heme/Lymph: No abnormal bruising General Limitations: no limitations Course Course Course Narrative: 27-year-old male with history of seizure disorder and transphenoidal resection of a pituitary adenoma presents the ER with recurrent seizures Reevaluation(s) Reevaluation #1: Suspect this is all medication noncompliance as he did not receive Keppra last night in detention. Regardless, today he is much more oriented and is able to hold still for his MRI. We will obtain a brain MRI with and without contrast to query for recurrent masses. Give 1000 mg IV Keppra x1 dose Reevaluation #2: Patient had 2 witnessed seizures lasting about 15 seconds by nursing at the bedside. He has not received his full dose of Keppra due to being an MRI scan. We will give 2 mg IV Ativan and continue with his Keppra load. Consultations Consultation #1: Consultation with Dr. Cespedes, neurology at [facility]. Dr. Cespedes agrees with Keppra load and continuing 1000 mg twice daily. Recommends against Lamictal as a will take some time to get this to steady state. He agrees with follow-up with neurology as outpatient. Vital Signs Vital signs: Vital Signs Temperature 98.3 F 12/14/22 12:29 Pulse Rate 81 12/14/22 12:29 Respiratory Rate 19 12/14/22 12:29 Blood Pressure 116/79 12/14/22 12:29 Pulse Oximetry (%) 100 12/14/22 12:29 Oxygen Delivery Method 12/14/22 12:29 Temperature 98.3 F 12/14/22 12:29 Pulse Rate 85 12/14/22 17:02 Respiratory Rate 24 H 12/14/22 15:31 Blood Pressure 112/63 12/14/22 17:02 Pulse Oximetry (%) 99 12/14/22 17:02 Oxygen Delivery Method 12/14/22 12:29 MDM MDM Narrative Medical decision making narrative: Recurrent seizures Patient is agreeable to admission and stabilization with Keppra. Dr. Cespedes, neurosurgery at [place], was consulted and agrees with continuation of Keppra 1000 mg p.o. twice daily. I have reached out to Dr. Jimenez for admission the patient of and accepted for observation. Discharge Plan Patient/Caregiver Discharge Instructions Pt seen by ASSEMBLER ERECTOR/PA only: Yes Clinical Impression: Seizure Instructions: Recurrent Seizures in Adults (ED) Patient Disposition: Xfer As Inpt ([facility]) Follow up with: Garfield Grant MD [Primary Care Provider] - Prescriptions: No Action amoxicillin-pot clavulanate 875-125 mg tablet 1 tab PO Q12H Qty: 28 0RF levetiracetam [Keppra] 500 mg tablet 500 mg PO BID Qty: 30 0RF
--- NOTE | 2022-12-14 18:38 | Internal Med History&Physical ---
HPI History of Present Illness Patient information: Note initiated : 12/14/22 at 6:36 pm Service Date, if different from initiated Date: [] Patient: Steven Dodson a 27 y/o M admitted on for seizure. Chief Complaint: [seizures] Chief complaint: seizures History of present illness: Mr. Dodson is a 27 year old M history of seizures since age of 10, multiple substance abuse, presenting with seizures. He was being detained in longterm due to substance abuse with opiate and methamphetamine. He was brought to our ED yesterday with multiple episode of seizures in the longterm. He was being discharged with prescriptions of oral Keppra. It was reported that he did not have a chance to last picker those prescriptions and he had additional episode of seizures weakness in the longterm. He was brought right back to our ED today for reevaluations. He has 2 additional episode of tonic-clonic seizures lasting around 15 seconds in the ED today. Brain MRI did not see any new intracranial lesions. Currently it is unclear whether the patient is in postictal confusion state or the patient simply not being cooperative and not answering to any of my questions. Observation admission request is called for stabilization and observations for seizures/post ictal status. Review of Systems ROS unobtainable: other Review of systems: patient not cooperative/post ictal status PFSH PFSH All Active Problems (Updated 12/14/22 @ 18:43 by Husam Jimenez MD) Post-ictal confusion (Acute) Opioid abuse (Acute) Methamphetamine abuse (Acute) Contusion of nose, initial encounter (Acute) Generalized seizure (Acute) Seizure (Acute) Abscess of arm, left (Acute) Contusion (Acute) Fracture of hand (Acute) Medical History Contusion Fracture of hand Social History smoking status: Current every day smoker MEDS/ALLERGIES Home Medications and Allergies Home Medications Medication Instructions Recorded Confirmed Type amoxicillin 875 mg-potassium 1 tab PO Q12H #28 tabs 02/07/22 Rx clavulanate 125 mg tablet levetiracetam 500 mg tablet 500 mg PO BID #30 tabs 12/13/22 Rx (Keppra) Allergies Allergy/AdvReac Type Severity Reaction Status Date / Time morphine Allergy Mild Hives Verified 12/13/22 12:38 ibuprofen AdvReac Mild Vomiting Verified 12/13/22 12:38 naproxen AdvReac Mild Vomiting Verified 12/13/22 12:38 tramadol AdvReac Mild Vomiting Verified 12/13/22 12:38 EXAM Constitutional Vitals: Temp Pulse Resp BP Pulse Ox O2 Del Method 36.8 C 75 24 H 102/78 100 12/14/22 12:29 12/14/22 18:13 12/14/22 15:31 12/14/22 17:21 12/14/22 18:13 12/14/22 12:29 General appearance: no acute distress; no cooperative Head Head exam: Present atraumatic and normocephalic Eye Eye exam: Present EOMI and PERRL ENT ENT exam: Present mucous membranes moist, normal exam and normal external ear exam Neck Neck exam: Present normal inspection; Absent lymphadenopathy, tenderness or thyromegaly Respiratory Respiratory exam: Absent accessory muscle use, respiratory distress or wheezes Cardiovascular Cardiovascular exam: Present normal rate and rhythm; Absent JVD GI/Abdominal GI/Abdominal exam: Present normal bowel sounds and soft; Absent organomegaly or tenderness Rectal Rectal exam: Present deferred Extremities Exam Extremities exam: Present full ROM, normal capillary refill and normal inspection; Absent tenderness Neurological Exam Neurological exam: Present altered and CN II-XII intact; Absent alert, motor sensory deficit or oriented X3 Additional comments: not cooperative Psychiatric Psychiatric exam: Present normal affect and normal mood; Absent anxious or depressed Skin Skin exam: Present dry and intact A/P Assessment and plan (1) Generalized seizure: Status: Acute (2) Methamphetamine abuse: Status: Acute (3) Opioid abuse: Status: Acute (4) Post-ictal confusion: Status: Acute Narrative A/P Narrative: Assessment and Plans: 1. Generalized seizures with suspected post-ictal confusion: Observation PCU Seizure precautions Ativan IV PRN seizure activities Keppra PO 2. Methamphetamine/opioid abuse: Continue to monitor GI ppx: not currently indicated DVT ppx: Lovenox Code status: Full Prognosis: guarded Disposition: observation PCU Time Spent With Patient Time: Total time spent is greater than 50% in coordination of care (as documented) at patient's floor/unit and/or counseling patient: Initial: Total time with patient: 55 - 74 minutes
[2022-12-14] MEDS ORDERED: LORazepam 2 MG/ML VIAL ONE (19:07)
[2022-12-14] MEDS ORDERED: SENNOSIDES 1 TABLET PO PRN (20:04)
[2022-12-14] MEDS ORDERED: IPRATROPIUM/ALBUTEROL 3 ML AMPUL.NEB NEB PRN (20:04)
[2022-12-14] MEDS ORDERED: ONDANSETRON 4 MG/2 ML VIAL IV PRN (20:04)
[2022-12-14] MEDS ORDERED: LACTULOSE 20 GM/30 ML ORAL.SOL PO PRN (20:04)
[2022-12-14] MEDS ORDERED: ACETAMINOPHEN 325 MG TABLET PO PRN (20:04)
[2022-12-14] MEDS ORDERED: NICOTINE 21 MG PATCH TOPICAL SCH (20:25)
[2022-12-14] MEDS: 0.9 % SODIUM CHLORIDE 10 ML SYRINGE IV SCH (21:27)
[2022-12-14] MEDS: levETIRAcetam 500 MG TABLET PO SCH (21:27)
[2022-12-14] MEDS: DOCUSATE SODIUM 100 MG CAPSULE PO SCH (21:28)
[2022-12-14] MEDS ORDERED: diphenhydrAMINE 25 MG CAPSULE PO PRN (22:45)
[2022-12-14] MEDS ORDERED: diphenhydrAMINE 25 MG CAPSULE ONE (22:51)
[2022-12-15] MEDS: LORazepam 2 MG/ML VIAL IV PRN ×2 (01:20→01:41)
[2022-12-15] MEDS: 0.9 % SODIUM CHLORIDE 10 ML SYRINGE IV SCH (07:34)
--- NOTE | 2022-12-15 07:57 | Discharge Summary ---
Discharge Provider Provider IMPORTANT FOLLOW-UP INFORMATION FOR PCP: Patient information: Note initiated : 12/15/22 at 7:55 am Service Date, if different from initiated Date: [] Patient: Steven Dodson 27 y/o M admitted on 12/14/22 for seizure. Chief Complaint: [] Date of admission: 12/14/22 19:53 Discharge date: 12/15/22 Primary care physician: Garfield Grant Attending physician on admission: Husam Jimenez Consults: 12/14/22 15:49 Consult to Physician [CONS] Stat Comment: Consulting Provider: Husam Jimenez Reason For Exam: Physician to Consult Attending physician on discharge: Husam Wallace [place] COURSE Hospital Course Hospital course: Mr. Dodson is a 27 year old M history of seizures since age of 10, multiple substance abuse, presenting with seizures. He was being detained in nursing home due to substance abuse with opiate and methamphetamine. He was brought to our ED yesterday with multiple episode of seizures in the nursing home. He was being discharged with prescriptions of oral Keppra. 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 He was brought right back to our ED today for reevaluations. He has 2 additional episode of tonic-clonic seizures lasting around 15 seconds in the ED today. Brain MRI did not see any new intracranial lesions. Currently it is unclear whether the patient is in postictal confusion state or the patient simply not being cooperative and not answering to any of my questions. Observation admission request is called for stabilization and observations for seizures/post ictal status. 12/15: An additional episode of seizures while in the unit. Patient's not cooperative to the staff. No more seizures overnight after that episode. Patient's medically stable. Decision made to discharge patient's back to the assisted facility. Prescriptions of Keppra oral given to the patient's. All questions answered prior to patient being physically discharged. Discharge diagnosis: Seizure Time Spent with Patient Time attestation: Total time spent providing and/or coordinating discharge services: Time spent: Less than 30 minutes EXAM Constitutional Vitals: Temp Pulse Resp BP Pulse Ox O2 Del Method 36.8 C 93 H 30 H 125/89 99 12/15/22 00:54 12/15/22 01:46 12/15/22 01:46 12/15/22 01:46 12/15/22 01:46 12/14/22 12:29 General appearance: no acute distress; no cooperative Head Head exam: Present atraumatic and normocephalic Eye Eye exam: Present EOMI and PERRL ENT ENT exam: Present mucous membranes moist, normal exam and normal external ear exam Neck Neck exam: Present normal inspection; Absent lymphadenopathy, tenderness or thyromegaly Respiratory Respiratory exam: Absent accessory muscle use, respiratory distress or wheezes Cardiovascular Cardiovascular exam: Present normal rate and rhythm; Absent JVD GI/Abdominal GI/Abdominal exam: Present normal bowel sounds and soft; Absent organomegaly or tenderness Rectal Rectal exam: Present deferred Extremities Exam Extremities exam: Present full ROM, normal capillary refill and normal inspection; Absent tenderness Neurological Exam Neurological exam: Present alert, CN II-XII intact and oriented X3; Absent motor sensory deficit Psychiatric Psychiatric exam: Present normal affect and normal mood; Absent anxious or depressed Skin Skin exam: Present dry and intact Discharge Plan Patient/Caregiver Discharge Instructions Activity: increase activity as tolerated Diet: Regular Diet Instructions: Recurrent Seizures in Adults (ED) Prescriptions: New levetiracetam 500 mg Tablet 1,000 mg PO BID Qty: 60 1RF nicotine [Nicoderm CQ] 21 mg/24 hr Patch 24 Hour 21 mg topical DAILY@1000 Qty: 14 0RF No Action levetiracetam [Keppra] 500 mg tablet 500 mg PO BID Qty: 30 0RF Follow Up Plan Follow up with: Garfield Grant MD [Primary Care Provider] - Patient Disposition: Xfer Court[facility] Potential: Good I certify that the patient requires SNF services: No Overall status at discharge: patient is back to baseline Discharge Orders: Discharge Order (Routine); Ordered 12/15/22 Ordered By: Husam LIVE VTE Deep Vein Thrombosis/Pulmonary Embolism Present on Admission: No
[2022-12-15] MEDS: levETIRAcetam 500 MG TABLET PO SCH (08:35)
[2022-12-15] MEDS: DOCUSATE SODIUM 100 MG CAPSULE PO SCH (08:51)
[2022-12-15] MEDS ORDERED: ENOXAPARIN 40 MG/0.4 ML SYRINGE SQ SCH (09:00)
[2022-12-15] MEDS ORDERED: NICOTINE 21 MG PATCH TOPICAL SCH (10:00)
== END 2022-12-15 08:50 ==
LOC: ICU 12:22 → ED 12:22 → ICU 19:55
PROVIDERS: ADMIT Internal Medicine; ATTEND Internal Medicine